=== PATIENT | female | born 1950 | race Hispanic/Latino ===

== ENCOUNTER → 2020-09-26 | Outpatient (CLI) | payer MEDICARE | END | disposition home or self-care (01) | LOC: SHCH 08:22 | PROVIDERS: ATTEND Internal Medicine Cardiovascular Disease | DX: I10 Essential (primary) hypertension (principal); R53.83 Other fatigue | CPT/HCPCS: 93306; 93356 ==

== ENCOUNTER → 2020-10-03 | Outpatient (CLI) | payer MEDICARE ==
[~2020-10-03] VITALS: Ht 154.9 cm; Wt 77.6 kg
[~2020-10-03] MED LIST: REGADENOSON 0.4 MG/5 ML PF SYG IVP SCH
== END | disposition home or self-care (01) ==
LOC: EDUNIT# 10-02 08:10 → SHCH 07:57
PROVIDERS: ATTEND Internal Medicine Cardiovascular Disease
DX: I24.8 Other forms of acute ischemic heart disease (principal); R53.83 Other fatigue
CPT/HCPCS: 78452; 93017; 96374; A9500 ×2; J2785